=== PATIENT | male | born 1970 | race African-American/Black ===

== ENCOUNTER 2016-11-07 06:56 | Emergency (ER) | payer OTHER ==
[2016-11-07 07:08] VITALS: RESP 18
[2016-11-07] MEDS ORDERED: ONDANSETRON 4 MG/2 ML VIAL ONE (07:13)
[2016-11-07] MEDS ORDERED: NS 1,000 ML IV ONE ×3 (07:15→10:39)
[2016-11-07] MEDS ORDERED: ONDANSETRON 4 MG/2 ML VIAL IVP ONE ×2 (07:15→09:25)
--- NOTE | 2016-11-07 07:19 | EDPHY ---
H & P Stated Complaint: c/o LLQ/Flank pain since early this am. 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 Pain is described as a 10 on 10. It is in his left flank going into his left lower abdomen. He has a history of similar pain in the past and was told he had a kidney stone. He did have a subsequent MRI which showed a cyst on his left kidney. Pain does radiate to his left lower abdomen. Has had some nausea but no vomiting. No fevers or chills. No diarrhea or constipation. There are no aggravating or alleviating factors. He cannot find a position of comfort. ROS: 10 point Review of Systems is negative except as noted in the HPI. PMH: Kidney stone, renal cyst Social History: No smoking, occasional alcohol, occasional marijuana Family History: non-contributory Physical Exam: Gen: Awake, Alert, uncomfortable appearing, no distress HEENT: Nose: no rhinorrhea Eyes: PERRLA, EOMI Mouth: Moist mucosa Neck: Supple, no JVD Chest: nontender, lungs clear to auscultation Heart: S1, S2 normal, no murmur Abd: Soft, non-tender, no guarding Back: no CVA tenderness, no midline tenderness Ext: no edema, non-tender Skin: no rash Neuro: CN II-XII intact, Sensation grossly intact, Strength 5/5 in bilateral upper and lower extremities - Personal History Current Tetanus Diphtheria and Acellular Pertussis (TDAP): Yes - Medical/Surgical History Other PMH: renal cyst - Social History Smoking Status: Never smoked Constitutional: Initial Vital Signs Temperature (C) 37.2 C 11/07/16 07:06 Heart Rate 57 L 11/07/16 07:06 Respiratory Rate 18 11/07/16 07:06 Blood Pressure 101/71 11/07/16 07:06 O2 Sat (%) 95 11/07/16 07:06 O2 Delivery Mode Room Air Allergies/Adverse Reactions: oxycodone HCl [From OxyContin] Allergy (Verified 10/18/11 19:42) Home Medications: Medication Instructions Recorded Miscellaneous Medical Supply [NO 1 ea MISC AD 10/18/11 HOME MEDS] Departure - Departure Referrals: Clive Pena MD [Primary Care Provider] - As per Instructions
[2016-11-07 07:29] LABS: % IMMATURE GRANULYOCYTES 0.3 % (0.0-1.1); ABSOLUTE IMMATURE GRANULOCYTES 0.02 10^3/uL (0.00-0.10); ADD DIFF? NO; ADD MORPH? NO; ADD SCAN? NO; ATYPICAL LYMPHOCYTE FLAG 20 (0-99); FRAGMENT RBC FLAG 0 (0-99); HEMATOCRIT 42.3 % (40.0-51.0); HEMOGLOBIN 14.2 g/dL (13.7-17.5); LEFT SHIFT FLG 0 (0-99); LIPEMIA HEMOLYSIS FLAG 80 (0-99); MEAN CELL HEMOGLOBIN 30.9 pg (27.9-34.1); MEAN CELL HEMOGLOBIN CONCENTR. 33.6 g/dL (32.4-36.7); MEAN CELL VOLUME 92.2 fL (81.5-99.8); PLATELET CLUMPS FLAG 0 (0-99); PLATELET COUNT 277 10^3/uL (150-400); RED BLOOD CELL COUNT 4.59 10^6/uL (4.40-6.38); RED CELL DISTRIBUTION WIDTH 13.2 % (11.5-15.2)
[2016-11-07 07:42] LABS: ANION GAP 13 mEq/L (8-16); CARBON DIOXIDE 24 mEq/l (22-31); CHLORIDE 105 mEq/L (97-110); GLOMERULAR FILTRATION RATE > 60; GLUCOSE 121 mg/dL (70-100); POTASSIUM 3.4 mEq/L (3.5-5.2); SODIUM 142 mEq/L (134-144)
[2016-11-07] MEDS ORDERED: KETOROLAC 15 MG/1 ML SDV IVP ONE (09:17)
[2016-11-07] MEDS ORDERED: LORazepam 2 MG/ML INJ IVP ONE ×2 (11:05)
[2016-11-07 11:56] LABS: COLOR YELLOW; LEUKOCYTE ESTERASE,URINE NEGATIVE (NEGATIVE); NITRITE,URINE NEGATIVE (NEGATIVE)
[2016-11-07 12:06] LABS: BACTERIA TRACE /hpf (NONE SEEN); MUCUS 3+ /lpf (NONE-1+); WBC,URINE 0-1 /hpf (0-3)
[2016-11-07] MEDS ORDERED: HYDROCOD/APAP 5/325 PREPACK#6 BTL TAKEHOME ONE (12:34)
[2016-11-07 13:06] VITALS: BP 110/62; TEMP 99; O2SAT 94
[2016-11-07 13:10] VITALS: PULSE 62
== END 2016-11-07 13:06 | disposition home or self-care (01) ==
LOC: CED 06:56
DX: N20.0 Calculus of kidney (principal)
CPT/HCPCS: 74176-PO; 80048-PO; 81003-PO; 81015-PO; 85025-PO; 96374; J1885; J2060; J2405

== ENCOUNTER 2018-05-02 16:49 | Observation (INO) | payer OTHER ==
[2018-05-02] MEDS ORDERED: ASPIRIN 81 MG CHEWABLE TAB PO ONE (17:11)
[2018-05-02] MEDS ORDERED: NS 500 ML IV ONE (17:11)
--- NOTE | 2018-05-02 17:18 | CPEKG ---
Test Reason : OPEN Blood Pressure : / mmHG Vent. Rate : 055 BPM Atrial Rate : 055 BPM P-R Int : 162 ms QRS Dur : 102 ms QT Int : 420 ms P-R-T Axes : -28 -02 015 degrees QTc Int : 402 ms Sinus rhythm Nonspecific T abnormalities, anterior leads Confirmed by Victor Manuel Miller ([id number]) on 05/02/2018 5:17:46 PM Referred By: Victor Manuel Miller Confirmed By:Victor Manuel Miller
--- NOTE | 2018-05-02 17:18 | EDPHY ---
H & P Stated Complaint: chest pain,left arm/neck pain,nausea Time Seen by Provider: 05/02/18 17:06 HPI/ROS: CHIEF COMPLAINT: Chest and arm pain HISTORY OF PRESENT ILLNESS: Patient is a 47-year-old man who comes to the emergency department complaining of chest pressure that radiates down his left arm and to his left neck. 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 It is not worsened by movement. No heavy lifting. No injury. He denies recent travel. No shortness of breath. He has felt nauseous but has not vomited. Slightly lightheaded. He describes it as a discomfort. He is not a smoker. He denies history of cardiac or pulmonary disease. He does not take any medications. He does report a cousin who had heart attack in his 40s. No leg pain or swelling. No fevers. He states that he has had slight upper respiratory infection for the last week which is now mostly gone. His discomfort has waxed and waned over the last several hours. Severity: Moderate Modifying factors: None REVIEW OF SYSTEMS: Constitutional: denies: chills, fever, recent illness, recent injury EENTM: denies: blurred vision, double vision, nose congestion Respiratory: denies: cough, shortness of breath Cardiac: See HPI Gastrointestinal/Abdominal: denies: abdominal pain, diarrhea, nausea, vomiting, blood streaked stools Genitourinary: denies: dysuria, frequency, hematuria, pain Musculoskeletal: denies: joint pain, muscle pain Skin: denies: lesions, rash, jaundice, bruising Neurological: denies: headache, numbness, paresthesia, tingling, dizziness, weakness Hematologic/Lymphatic: denies: blood clots, easy bleeding, easy bruising Immunologic/allergic: denies: HIV/AIDS, transplant 10 systems reviewed and negative except as noted EXAM: GENERAL: Well-appearing, well-nourished muscularly built, and in no acute distress. HEAD: Atraumatic, normocephalic. EYES: Pupils equal round and reactive to light, extraocular movements intact, sclera anicteric, conjunctiva are normal. ENT: TMs normal, nares patent, oropharynx clear without exudates. Moist mucous membranes. NECK: Normal range of motion, supple without lymphadenopathy or JVD. LUNGS: Breath sounds clear to auscultation bilaterally and equal. No wheezes rales or rhonchi. HEART: Regular rate and rhythm without murmurs, rubs or gallops. ABDOMEN: Soft, nontender, normoactive bowel sounds. No guarding, no rebound. No masses appreciated. BACK: No CVA tenderness, no spinal tenderness, step-offs or deformities EXTREMITIES: Normal range of motion, no pitting or edema. No clubbing or cyanosis. NEUROLOGICAL: Cranial nerves II through XII grossly intact. Normal speech, normal gait. 5/5 strength, normal movement in all extremities, normal sensation , normal reflexes PSYCH: Normal mood, normal affect. SKIN: Warm, dry, normal turgor, no visible rashes or lesions. Source: Patient Exam Limitations: No limitations - Personal History Current Tetanus Diphtheria and Acellular Pertussis (TDAP): Yes Tetanus Vaccine Date: 2017 - Medical/Surgical History Hx Asthma: No Hx Chronic Respiratory Disease: No Hx Diabetes: No Hx Cardiac Disease: No Hx Renal Disease: No Hx Cirrhosis: No Hx Alcoholism: No Hx HIV/AIDS: No Hx Splenectomy or Spleen Trauma: No Other PMH: Hypercholesterolemia, renal cyst,kidney stones - Family History Significant Family History: Heart disease (Cousin had a heart attack at 40) - Social History Smoking Status: Never smoked Alcohol Use: None Constitutional: Initial Vital Signs Temperature (C) 36.9 C 05/02/18 16:57 Heart Rate 55 L 05/02/18 16:57 Respiratory Rate 13 05/02/18 16:57 Blood Pressure 135/82 H 05/02/18 16:57 O2 Sat (%) 97 05/02/18 16:57 O2 Delivery Mode Room Air Allergies/Adverse Reactions: oxycodone HCl [From OxyContin] Allergy (Verified 05/02/18 22:21) Nausea Home Medications: Medication Instructions Recorded NK [No Known Home Meds] 05/02/18 Medical Decision Making - Diagnostics EKG Interpretation: An EKG obtained and was read and documented in trace view. Please see trace view for full reading and report. Sinus rhythm, nonspecific T-wave abnormalities anteriorly A repeat EKG obtained and was read and documented in trace view. Please see trace view for full reading and report. Sinus rhythm, T-wave inversions anteriorly, similar to previous A repeat EKG obtained and was read and documented in trace view. Please see trace view for full reading and report. Sinus rhythm, T-wave inversions anteriorly. Similar to previous Imaging: Discussed imaging studies w/ wrapper counter Radiologist ED Course/Re-evaluation: 5:40 p.m. patient's repeat EKG is unchanged. Patient has a heart score 4. Will recommend admission. Initial troponin negative. Pain improved after aspirin and nitroglycerin. Discussed admission and the patient accepts. Have paged hospitalist service. 6:00 p.m. Discussed the case with Dr. Lawson who will admit. 7:30 p.m. patient remains chest pain free. Awaiting ambulance for transfer. Differential Diagnosis: Partial list of the Differential diagnosis considered include but were not limited to; acute coronary disease, pericarditis, PE and although unlikely based on the history and physical exam, I also considered dissection, aneurysm, pneumothorax, pneumonia. - Data Points Medications Given: Discontinued Medications Aspirin (Aspirin) 324 mg PO EDNOW ONE Stop: 05/02/18 17:12 Last Admin: 05/02/18 17:38 Dose: 324 mg Sodium Chloride (Ns) 500 mls @ 1,000 mls/hr IV EDNOW ONE PRN Reason: Protocol Stop: 05/02/18 17:40 Last Admin: 05/02/18 17:47 Dose: 500 mls Nitroglycerin (Nitrostat) 0.4 mg SL Q5M PRN PRN Reason: Chest Pain Last Admin: 05/02/18 17:50 Dose: 0.4 mg Point of Care Test Results: CBC CBC Collection Date 05/02/18 CBC Collection Time 17:18 WBC 4.51 RBC 4.81 HGB 15.0 HCT 44.2 PLT 232 Neut # 1.37 Neut 30.5 LYMPH # 2.64 LYMPH 58.5 MCV 91.9 Chemistry 05/02/18 05/02/18 17:26 17:23 POC Sodium 140 mEq/L mEq/L (135-145) POC Potassium 3.6 mEq/L mEq/L (3.3-5.0) POC Chloride 106.0 mEq/L mEq/L (97-110) POC Total CO2 25 mEq/L mEq/L (22-31) POC BUN 8 mg/dL mg/dL (7-23) POC Creatinine 0.7 mg/dL mg/dL (0.7-1.3) POC Glucose 107 mg/dL H mg/dL (70-100) POC Calcium 9.5 mg/dL mg/dL (8.5-10.4) POC Troponin I 0.00 ng/mL ng/mL (0.00-0.08) D-Dimer D-Dimer Collection Date 05/02/18 D-Dimer Collection Time 17:18 D-Dimer (ng/ml) <100 Departure - Departure Disposition: [facility] Inpatient Acute Clinical Impression: Chest pain Condition: Fair
--- NOTE | 2018-05-02 17:41 | CPEKG ---
Test Reason : OPEN Blood Pressure : / mmHG Vent. Rate : 053 BPM Atrial Rate : 053 BPM P-R Int : 163 ms QRS Dur : 103 ms QT Int : 419 ms P-R-T Axes : -24 004 004 degrees QTc Int : 394 ms Sinus rhythm Nonspecific T abnrm, anterolateral leads Confirmed by Petra Garcia ([id number]) on 05/02/2018 5:40:56 PM Referred By: PETRA GARCIA Confirmed By:Petra Garcia
[2018-05-02] MEDS: NITROGLYCERIN 0.4 MG BTL SL PRN ×2 (17:45→17:50)
[2018-05-02] MEDS ORDERED: ONDANSETRON 4 MG/2 ML VIAL IVP PRN (18:32)
[2018-05-02] MEDS ORDERED: ONDANSETRON DISINTEGRATING 4 MG TAB PO PRN (18:32)
[2018-05-02] MEDS ORDERED: ACETAMINOPHEN 325 MG TAB PO PRN (18:32)
[2018-05-02] MEDS ORDERED: NITROGLYCERIN 0.4 MG BTL SL PRN (18:33)
--- NOTE | 2018-05-02 19:49 | CPEKG ---
Test Reason : OPEN Blood Pressure : / mmHG Vent. Rate : 050 BPM Atrial Rate : 051 BPM P-R Int : 161 ms QRS Dur : 105 ms QT Int : 453 ms P-R-T Axes : -24 -08 -11 degrees QTc Int : 414 ms Sinus rhythm Abnrm T, consider ischemia, anterolateral lds Confirmed by Victor Manuel Miller ([id number]) on 05/02/2018 7:49:06 PM Referred By: Richard Lawson Confirmed By:Victor Manuel Miller
[2018-05-03] MEDS ORDERED: CALCIUM CARBONATE 500 MG CHEWABLE TAB PO PRN (00:33)
--- NOTE | 2018-05-03 00:40 | PDGENHP ---
History and Physical - Chief Complaint Chest pain and left arm pain - History of Present Illness Source-patient provides history appears reliable. EMR was reviewed and case discussed with ED provider. HPI - this is a very pleasant 47-year-old gentleman with past medical history see kidney stones, TYRA on CPAP who presents emergency department at [facility] today with complaints and chest pain. Patient reports that he was sitting at his desk at work when he started to experience left arm pain originating from his left shoulder down into his. He denies any numbness or tingling. He did not have any associated shortness of breath, chest pain initially. Several hours following this patient reports that he started to develop central left-sided chest discomfort and pain. He notes that over the last several weeks he has been having increased episodes of reflux but today symptoms felt different. Patient also reports that he is getting over a mild URI. He denies any pleuritic-type chest pain. Nothing seems to make the chest pain better. He denies any shortness of breath at any time. No diaphoresis. He did develop some mild lightheadedness without any presyncope. He also reports some blurry vision. Patient denies any lower extremity edema, orthopnea , PND. He wears a CPAP at . Some increased stressors in his life. Family history significant for a 1st cousin had who had an AL age 40. No 1st degree relatives with cardiac disease. History Information - Allergies/Home Medication List Allergies/Adverse Reactions: oxycodone HCl [From OxyContin] Allergy (Verified 05/02/18 22:21) Nausea Home Medications: NK [No Known Home Meds] 05/02/18 [Last Taken Unknown] I have personally reviewed and updated: family history, medical history, social history, surgical history - Past Medical History Additional medical history: HLD - dietary controlled. Renal cysts, kidney stones. TYRA on CPAP. - Surgical History Reports: no pertinent surgical hx Additional surgical history: Patient denies any surgeries. - Family History Additional family history: Patient has a 1st cousin with history AL age 40. No other family members with cardiac disease. - Social History Smoking Status: Never smoked Alcohol Use: None Drug Use: None Additional social history: Patient is lives with his and 3 children. He is employed. Cor status-full. Review of Systems Review of Systems: ROS: 10pt was reviewed & negative except for what was stated in HPI & below Constitutional: Reports: no symptoms EENMT: Reports: blurred vision Cardiac: Reports: chest pain, lightheadedness. Denies: palpitations, syncope Respiratory: Reports: cough (Patient with resolving URI symptoms) Gastrointestinal: Reports: no symptoms Genitourinary: Reports: no symptoms Muscolosketal: Reports: other (Left arm pain see) Skin: Reports: no symptoms Neurological: Reports: no symptoms. Denies: anxiety, depressed Hematologic/Lymphatic: Reports: no symptoms Physical Exam Physical Exam: Selected Entries 05/02/18 16:57 Blood Pressure Automatic Method Heart Rate 55 L Respiratory 13 Rate O2 Sat (%) 97 Temperature (C) 36.9 C Blood Pressure 135/82 H Mean Arterial 99 Pressure (MAP) O2 Delivery Room Air Mode Temperature Oral Source Temp Pulse Resp BP Pulse Ox 36.5 C 60 16 110/65 94 05/02/18 23:22 05/02/18 23:22 05/02/18 23:22 05/02/18 23:22 05/02/18 23:22 Constitutional: no apparent distress Eyes: PERRL, anicteric sclera, EOMI, No scleral injection Ears, Nose, Mouth, Throat: moist mucous membranes, other (No nasal discharge), No poor dentition Cardiovascular: regular rate and rhythym, no murmur, rub, or gallop, pulses symmetric bilaterally, No edema Peripheral Pulses: 2+: dorsalis-pedis (R), dorsalis-pedis (L) Respiratory: no respiratory distress, no rales or rhonchi, clear to auscultation , No inspiratory crackles Gastrointestinal: normoactive bowel sounds, soft, non-tender abdomen, no palpable masses, No distension Genitourinary: no bladder tenderness, No watts in urethra Skin: warm, normal color, no rashes or abrasions Musculoskeletal: full muscle strength, other (Patient sits up independently. Moves all extremities.) Neurologic: AAOx3, sensation intact bilaterally, other (Grossly nonfocal exam.) , No facial droop Psychiatric: interacting appropriately, not anxious, not encephalopathic, thought process linear Lab Data & Imaging Review Point of [place] [facility] [place] reviewed and within normal limits. POC Sodium 140 mEq/L (135-145) 05/02/18 17:26 POC Potassium 3.6 mEq/L (3.3-5.0) 05/02/18 17:26 POC Chloride 106.0 mEq/L (97-110) 05/02/18 17: POC Total CO2 25 mEq/L (22-31) 05/02/18 17:26 POC BUN 8 mg/dL (7-23) 05/02/18 17:26 POC Creatinine 0.7 mg/dL (0.7-1.3) 05/02/18 17: POC Glucose 107 mg/dL (70-100) H 05/02/18 17: POC Calcium 9.5 mg/dL (8.5-10.4) 05/02/18 17: POC Troponin I 0.00 ng/mL (0.00-0.08) 05/02/18 17:23 Imaging Review: Chest, Two Views at 1711 hours dated May 02, 2018 History: Chest pain, shortness of breath. Comparison: None. Findings: Cardiac silhouette is within normal range. Bilateral peribronchial thickening. No definite pneumonia. No congestive heart failure, pleural effusion, or pneumothorax. Levoscoliosis upper thoracic spine and thoracolumbar dextroscoliosis. Impression: 1. Bronchitis/airways disease. 2. No definite pneumonia. Dictated By: Anderson Regan Visualized and Interpreted Chest x-ray results: Yes Visualized and Interpreted EKG results: Yes EKG additional interpertation: sinus 50s. t wave inversion multiple leads ( inferior, anterolateral). no acute ST elevations. QTc 414. no ekgs before today for comparison. Assessment & Plan Assessment: Pleasant 47-year-old gentleman with a history of diet-controlled hyperlipidemia , TYRA on CPAP who presents emergency department today with complaints of central chest pain with radiating pain down his left arm Chest pain - patient's symptoms are currently resolved. He received aspirin and IV fluids before transfer. patient HEART score is 4 (age, HLD, EKG changes and history). Patient also notes some increased stressors at home, recent URI illness as well as some intermittent episodes of reflux which could all also be contributing to his symptoms. Patient does have evidence of bronchitis on chest x-ray. No pneumonia is evident. Will continue to trend troponins. Serial EKGs [place] [facility] we are not significantly changed. Will plan to repeat in the morning. Assuming troponins and EKG are stable will plan to proceed with a treadmill stress test. Nitro p.r.n. For chest pain. Reflux - Tums p.r.n. HLD-check lipid panel morning. TYRA on CPAP - patient brought own machine. FEN - PO hydration. electrolytes acceptable. npo after midnight except sips. PPX - SCDs. lovenox if patient should stay additional day otherwise low risk dvt. encourage mobilization. COR - FULL. Dispo - Patient admitted to observation status on PCU for close cardiac monitoring.
[2018-05-03] MEDS ORDERED: ENOXAPARIN 40 MG/0.4 ML SYR SC SCH (09:00)
--- NOTE | 2018-05-03 10:03 | ASMTCMCOM ---
CM Note CM Note Notes: Pts case discussed in tx rounds. Pt is a 47 y/o man admitted for chest pain. Pt will most likely d/c independent when medically stable. No therapies ordered at this time. CM available for changes. Plan: Independent Date Signed: 05/03/2018 10:03 AM Electronically Signed By:ELISA Mccall
[2018-05-03 15:38] VITALS: BP 90/60
--- NOTE | 2018-05-03 16:57 | CPR ---
[f rep st] NONINVASIVE CARDIAC PROCEDURE REPORT PROCEDURE: Exercise treadmill, MPI study SUPERVISING PRODUCE ASSOCIATE: Dr. Tex Aguilar INDICATION FOR STRESS TESTING: Abnormal electrocardiogram, chest pressure. PRE: After obtaining informed consent, the patient was placed on electrocardiogram. Initial EKG shows sinus bradycardia, noted T-wave inversion in V3 through V 5. Initial blood pressure 110/72, saturation 96% on room air. Patient denies of chest pain, pressure or symptoms suggesting of ischemia. STRESS: The patient was placed on exercise treadmill following standard [facility] protocol with the following findings: 1. Patient exercised 10 minutes. 2. 10.9 METS. 3. Obtained a heart rate of 162 beats per minute at 94%. 4. Patient had no chest pain or symptoms suggesting of ischemia through testing. 5. Noting as patient exerting himself, T-wave inversion normalized. Noting at peak exercise, sub mm upsloping ST depression in V3 and V4. 6. No arrhythmias noted through testing. 7. BP response at rest 100/72, at stress 156/80. 8. SpO2 greater than 90%. 9. Testing was stopped due to maximum effort. 10. Lane treadmill score of 10 placing him at low cardiovascular risk. RECOVERY: Patient recovered 5 minutes with heart rate returning back to normal , EKG returned back to baseline noted with returning of T-wave inversion in V3 through V6. Patient remained asymptomatic. Final blood pressure was 104/66, saturation 96% on room air. IMPRESSION: 47-year-old male being evaluated for cardiac ischemia, noted to have abnormal electrocardiogram on initial presentation. Resting EKG showing T- wave inversion in V3 through V5. At rest, he reports no chest pain, pressure, or symptoms suggesting of ischemia. Patient noted to have sub mm upsloping ST depression in V3 and V4 at peak exercise with T waves normalizing, not diagnostic of ischemia. In recovery, heart rate decreased , T-wave inversion returned. Lane treadmill score 10, placing him at low cardiovascular risk. Patient asymptomatic. Vital signs are stable. He is being taken to Nuclear Medicine for post-stress imaging. /[id number]/MODL MTDD
--- NOTE | 2018-05-03 23:28 | GDS ---
[f rep st] DISCHARGE SUMMARY DISCHARGE DIAGNOSES: 1. Chest pain. 2. Hyperlipidemia. 3. Obstructive sleep apnea. HISTORY: The patient is a 47-year-old male with a strong family history of coronary artery disease a s well as uncontrolled hyperlipidemia presenting with chest pain. His HEART score was 4. An exercis e treadmill test was ordered. Cardiology decided to change it to a Lexiscan as they thought his base line EKG was to abnormal to interpret properly on a standard treadmill. He received nuclear images. These were negative for reversible ischemia. He was discharged home. He will follow up with his [facility] care provider regarding his hyperlipidemia. His LDL is 150 and could consider initiating med t herapy, especially with his strong family history. DISCHARGE MEDICATIONS: Please see computerized record for full detailed list. There are no new medi cations given at time of hospital discharge. ADDITIONAL DISCHARGE INSTRUCTIONS: Review your cholesterol panel with your primary care and consider initiating statin therapy. Patient was seen and examined by me on the day of discharge. /[id number]/MODL
== END 2018-05-03 17:05 | disposition home or self-care (01) ==
LOC: CED 16:49 → CEDHOLD 17:46 → F2W 21:11
PROVIDERS: ADMIT Internal Medicine; ATTEND Internal Medicine
DX: R07.9 Chest pain, unspecified (principal); R94.31 Abnormal electrocardiogram [ECG] [EKG]; E86.9 Volume depletion, unspecified; E78.5 Hyperlipidemia, unspecified; G47.33 Obstructive sleep apnea (adult) (pediatric); N28.1 Cyst of kidney, acquired; K21.9 Gastro-esophageal reflux disease without esophagitis; Z87.442 Personal history of urinary calculi; Z82.49 Family history of ischemic heart disease and other diseases of the circulatory system
CPT/HCPCS: 71046; 78452; 93005; 93017; 96360; 99285; A9500; G0378; 80048-ER; 84484-ER